=== PATIENT | male | born 1945 | race Caucasian/White ===

== ENCOUNTER → 2016-08-21 | Outpatient (CLI) | payer BC, MEDICARE, OTHER ==
[~2016-08-21] MED LIST: /PREG50CA PO; /WARF25TA PO; AMBIEN PO; ASPI325T PO; CEFAD50CA PO; CHLO25TA3 PO; CLOTR1CR EXT; MAG400TA PO; OMEP40CA2 PO; OXYC5CAP2 PO; OXYC5TAB2 PO; POTA10TA2 PO; TYLE325T5 PO; ZANT150T PO
--- NOTE | 2016-08-21 17:08 | REP ---
CHEST X-RAY PA AND LATERAL 08/21/2016: Comparison: 10/05/2014. Clinical history: Wheezing, dyspnea. Findings: Two PA views to encompass entirety of the chest with a lateral projection. Fibrosis, COPD and apical pleural scarring bilaterally, unchanged from previous study. There is no cardiomegaly, vascular redistribution or pulmonary edema. The aorta is calcified at the arch without aneurysm. Airway intact. Bony thorax shows no focal lesion. Peribronchial thickening reflect bronchitis or reactive airway disease. There is a right upper quadrant metallic foreign body posteriorly. This is unchanged from the CT classification analyst on the chest CT of 09/21/2012 and previous chest x-rays. Bony thorax shows no compression deformity or focal lesion. Impression: 1. COPD and basilar fibrotic change without cardiomegaly, edema, atelectasis or mass. Apical pleural scarring and peribronchial thickening as before. No acute infiltrate. 2. Tortuous aorta without aneurysm. Signed by Mitch Art MD 08/22/2016 03:05 P
== END ==
LOC: M WUC 16:26
PROVIDERS: ATTEND Family Medicine
DX: J44.9 Chronic obstructive pulmonary disease, unspecified (principal); J98.4 Other disorders of lung; I48.0 Paroxysmal atrial fibrillation

== ENCOUNTER → 2018-07-27 | Outpatient (REF) | payer MEDICARE, BC, OTHER | LOC: M LAB REF 13:13 | PROVIDERS: ATTEND Nurse Practitioner Family | DX: N39.0 Urinary tract infection, site not specified (principal) ==

== ENCOUNTER → 2018-08-05 | Outpatient (REF) | payer MEDICARE, BC, OTHER | LOC: M LAB REF 16:49 | PROVIDERS: ATTEND Family Medicine | DX: R31.9 Hematuria, unspecified (principal) ==

== ENCOUNTER → 2018-08-17 | Outpatient (CLI) | payer MEDICARE ==
[~2018-08-17] MED LIST changes: -/PREG50CA PO; -/WARF25TA PO; +CLOT1CRE27 EXT; -CLOTR1CR EXT; +COUM1TAB18 PO; +ISOVUE-370 76% 100ML VIAL (Q9967) As Ordered ONE; +LYRI50CA PO
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
== END ==
LOC: M RAD 12:55
PROVIDERS: ATTEND Nurse Practitioner Family
DX: N13.30 Unspecified hydronephrosis (principal); N20.1 Calculus of ureter; N28.1 Cyst of kidney, acquired
CPT/HCPCS: 74178; Q9967

== ENCOUNTER → 2018-09-17 | Outpatient (CLI) | payer MEDICARE ==
[~2018-09-17] MED LIST changes: +ASPI-222 PO; +FINA5TAB2 PO; -ISOVUE-370 76% 100ML VIAL (Q9967) As Ordered ONE; +LISI-542 PO; +MAGN400C2 PO; +OXYC1TAB23 PO; +POTA20TA6 PO; +PRAV40TA2 PO; +PREG50CA PO; +ZANTTAB PO; +ZOLP5TAB PO
[2018-09-17 13:31] LABS: HEMATOCRIT 45.5 % (42.0-52.0); HEMOGLOBIN 16.1 g/dl (13.5-17.5); MEAN CORPUSCULAR HEMOGLOBIN 31.3 pg (27.0-33.0); MEAN CORPUSCULAR HGB CONC 35.4 g/dl (32.0-36.5); MEAN CORPUSCULAR VOLUME 88.5 fl (80.0-96.0); PLATELET COUNT, AUTOMATED 146 10^3/uL (150-450); RED BLOOD COUNT 5.14 10^6/uL (4.30-6.10); WHITE BLOOD COUNT 6.2 10^3/uL (4.0-10.0)
[2018-09-17 13:51] LABS: INR 1.07
[2018-09-17 13:52] LABS: PARTIAL THROMBOPLASTIN TIME 30.3 SECONDS (25.4-37.6)
[2018-09-17 13:56] LABS: BLOOD UREA NITROGEN 16 MG/DL (7-18); CALCIUM LEVEL 8.7 MG/DL (8.8-10.2); CARBON DIOXIDE LEVEL 29 MEQ/L (21-32); CHLORIDE LEVEL 102 MEQ/L (98-107); CREATININE FOR GFR 0.92 MG/DL (0.70-1.30); GLOMERULAR FILTRATION RATE > 60.0 (>42); GLUCOSE, FASTING 95 MG/DL (70-100); POTASSIUM SERUM 4.5 MEQ/L (3.5-5.1); SODIUM LEVEL 138 MEQ/L (136-145)
--- NOTE | 2018-09-17 15:03 | REP ---
HISTORY: Preoperative evaluation. COMPARISON: 08/21/2016, the latest prior. FINDINGS: The superior mediastinal structures are midline. The cardiac silhouette is unremarkable in size, shape and position. The diaphragmatic surfaces of the lungs are regular and the costophrenic angles are clear. The pulmonary pozo are clear. The imaged osseous structures are intact. IMPRESSION: There is no acute cardiopulmonary disease. No significant change from the prior exam. Electronically Signed by Niko Gardner DO 09/17/2018 04:09 P
== END ==
LOC: M SMT 12:02
PROVIDERS: ATTEND Urology
DX: Z01.818 Encounter for other preprocedural examination (principal); N21.0 Calculus in bladder; N20.0 Calculus of kidney; Z86.79 Personal history of other diseases of the circulatory system

== ENCOUNTER → 2018-09-17 | Outpatient (CLI) | payer MEDICARE ==
--- NOTE | 2018-09-18 23:52 | ECGEPIP ---
Stationary ECG Study [facility] Test Date: 2018-09-17 Pat Name: JOSELITO KELLY Department: Room: - Gender: M Route Vending Machine Servicer: : 1945 Requested By: AUGUST Ferreira Order Number: [id number] Reading MD: Moreno aBrrera Measurements Intervals [place] Rate: 60 P: 67 VT: 181 QRS: 41 QRSD: 95 T: 42 QT: 413 QTc: 414 Interpretive Statements SINUS RHYTHM NO PRIOR TRACING IN THE SYSTEM Electronically Signed On 09-18-2018 23:51:43 EDT by Moreno Barrera
== END ==
LOC: M EKG 12:54
PROVIDERS: ATTEND Urology
DX: Z01.818 Encounter for other preprocedural examination (principal); N21.0 Calculus in bladder; N20.1 Calculus of ureter

== ENCOUNTER 2018-09-25 11:07 | Day surgery (SDC) | payer MEDICARE ==
[~2018-09-25] VITALS: Ht 170.2 cm; Wt 75.7 kg
[~2018-09-25 11:07] MED LIST changes: +LIDOCAINE 1% MDV 20ML VIAL SQ PRN
[2018-09-25] MEDS ORDERED: LR 1,000 ML IV ONE (11:15)
[2018-09-25] MEDS ORDERED: MORPHINE 4 MG/ML 1ML VIAL/SYRINGE (J2270) As Ordered ONE (13:16)
[2018-09-25] MEDS ORDERED: MORPHINE 4 MG/ML 1ML VIAL/SYRINGE (J2270) IV ONE (13:30)
[2018-09-25] MEDS ORDERED: CONRAY-60 60% 50ML VIAL (Q9961) As Ordered ONE (17:01)
[2018-09-25] MEDS: fentaNYL 100 MCG/2 ML INJECTION (J3010) IV PRN ×4 (17:50→18:08)
[2018-09-25] MEDS ORDERED: PERCOCET 5MG/325MG TAB As Ordered ONE (17:50)
[2018-09-25] MEDS ORDERED: fentaNYL 100 MCG/2 ML INJECTION (J3010) As Ordered ONE (17:50)
[2018-09-25] MEDS ORDERED: LR 1,000 ML IV SCH (18:00)
[2018-09-25] MEDS ORDERED: ONDANSETRON 4MG/2ML VIAL (J2405) IV PRN (18:00)
[2018-09-25] MEDS ORDERED: ACETAMINOPHEN TAB 650MG DOSE (2X325MG) PO PRN (18:00)
[2018-09-25] MEDS ORDERED: PERCOCET 5MG/325MG TAB PO PRN (18:00)
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
[2018-09-25 19:49] VITALS: BP 131/76
--- NOTE | 2018-09-26 07:58 | REP ---
RETROGRADE PYELOGRAM: Single image of the pelvis was obtained in my absentia using a portable C-Arm device. That examination shows the distal aspect of a cystoscope with a tiny amount of contrast opacifying what appears to be the urinary bladder. Multiple round radiodensities are seen in the pelvis and there is a left hip prosthesis. Fluoroscopy time provided Dr. Deras: 1 minute 14 seconds. Electronically Signed by Niko Gardner DO 09/26/2018 08:30 A
[2018-09-30 14:11] LABS: COMMENT Comment: (.); COMMENT Note: (.); Ca Ox Monohydrate 95 % (.)
== END 2018-09-25 19:49 | disposition home or self-care (01) ==
LOC: M SDC 11:07
PROVIDERS: ATTEND Urology
DX: N21.0 Calculus in bladder (principal); E78.5 Hyperlipidemia, unspecified; K21.9 Gastro-esophageal reflux disease without esophagitis; Z79.899 Other long term (current) drug therapy; Z79.82 Long term (current) use of aspirin; I10 Essential (primary) hypertension
CPT/HCPCS: 52005; 52318; 74420; 82360; 88300; C1769; J0690; Q9961

== ENCOUNTER 2019-10-09 08:28 | Emergency (ER) | payer MEDICARE ==
[~2019-10-09] VITALS: Ht 167.6 cm; Wt 70.5 kg
[~2019-10-09 08:28] MED LIST changes: -ASPI-222 PO; +ASPI-527 PO; +CEFA500C2 PO; -LIDOCAINE 1% MDV 20ML VIAL SQ PRN; -LISI-542 PO; +LISI-898 PO; +ZANT150T40 PO; -ZANTTAB PO
[2019-10-09 09:15] LABS: BASO % 0.2 % (0.0-1.0); HEMATOCRIT 48.9 % (42.0-52.0); HEMOGLOBIN 17.2 g/dl (13.5-17.5); LYMPH # 0.8 10^3/uL (1.5-5.0); LYMPH % 3.1 % (24.0-44.0); MEAN CORPUSCULAR HEMOGLOBIN 30.6 pg (27.0-33.0); MEAN CORPUSCULAR HGB CONC 35.2 g/dl (32.0-36.5); MEAN CORPUSCULAR VOLUME 86.9 fl (80.0-96.0); MONO # 2.2 10^3/uL (0.0-0.8); MONO % 8.2 % (0.0-5.0); NEUTROPHILS # 23.2 10^3/uL (1.5-8.5); NEUTROPHILS % 87.5 % (36.0-66.0); PLATELET COUNT, AUTOMATED 186 10^3/uL (150-450); RED BLOOD COUNT 5.63 10^6/uL (4.30-6.10); WHITE BLOOD COUNT 26.5 10^3/uL (4.0-10.0)
[2019-10-09 09:26] LABS: ALBUMIN 3.7 GM/DL (3.2-5.2); ALT/SGPT 30 U/L (12-78); BILIRUBIN,DIRECT 0.7 MG/DL (0.0-0.2); BILIRUBIN,TOTAL 1.7 MG/DL (0.2-1.0); LIPASE 68 U/L (73-393); TOTAL PROTEIN 7.8 GM/DL (6.4-8.2)
[2019-10-09] MEDS ORDERED: ONDANSETRON 4MG/2ML VIAL IV ONE (09:30)
[2019-10-09] MEDS ORDERED: NS 1,000 ML IV ONE (09:30)
[2019-10-09] MEDS ORDERED: MORPHINE 4 MG/ML 1ML VIAL/SYRINGE (J2270) IV ONE ×2 (09:30→10:15)
[2019-10-09] MEDS ORDERED: ASPI81TA86 PO (09:36)
[2019-10-09] MEDS ORDERED: PERC5TAB12 PO (09:36)
[2019-10-09] MEDS ORDERED: CIPR-249 PO (09:36)
[2019-10-09] MEDS ORDERED: POTA1TAB14 PO (09:36)
[2019-10-09 09:42] LABS: CK-MB VALUE MASS < 1.0 NG/ML (<3.6); CPK CREATINE PHOSPHOKINASE 36 U/L (39-308); MB/CK RELATIVE INDEX 2.78 (< OR =4); TROPONIN I < 0.02 NG/ML (< 0.10)
[2019-10-09 09:52] LABS: INR 1.25; PROTHROMBIN TIME 15.4 SECONDS (11.8-14.0)
[2019-10-09 09:53] LABS: PARTIAL THROMBOPLASTIN TIME 32.5 SECONDS (25.0-38.4)
[2019-10-09] MEDS ORDERED: PIPERACILLIN/TAZOBACTAM SOD 4.5 GM in D5W MINI-BAG PLUS 50 ML IV ONE (10:00)
[2019-10-09] MEDS ORDERED: NS IV ONE (10:00)
[2019-10-09] MEDS ORDERED: DORZ2SOL5 OU (10:35)
[2019-10-09] MEDS ORDERED: ISOVUE-370 76% 100ML VIAL As Ordered ONE (10:54)
[2019-10-09] MEDS ORDERED: fentaNYL 100 MCG/2 ML INJECTION (J3010) IV ONE (11:30)
[2019-10-09] MEDS ORDERED: HYDROmorphone 2 MG TAB PO STA (12:04)
[2019-10-09] MEDS ORDERED: HYDROMORPHONE HCL 0.5 MG/ 0.5 ML SYRINGE (J1170 PER 1) IV ONE ×2 (12:15→15:30)
--- NOTE | 2019-10-09 14:52 | ED PDOC ---
Post-Departure Follow-Up PT REMAINS IN ED, INITIATED TRANSFER AT 11:40. STAT TRANSFER REQUESTED. 1402- [facility]. 1410 ALL PAPERWORK COMPLETED, STAT TRANSFER. JASWINDER MATIAS PA-C October 09, 2019 14:52
--- NOTE | 2019-10-09 14:58 | REP ---
CT ABDOMEN AND PELVIS WITH IV CONTRAST: TECHNIQUE: Axial contrast-enhanced images from the lung bases to the pubic symphysis using 100 mL Isovue-370 intravenous contrast material with multiplanar reformations. Visualized lung bases demonstrate very mild fibrotic changes. There are a few calcified left hilar lymph nodes. There are a few calcified granulomas in the left lower lobe. Gallbladder is moderately distended. There is gallbladder wall thickening and edema with mild surrounding pericholecystic edema and fluid. The findings are compatible with cholecystitis. Common bile duct is prominent in diameter measuring about 8 mm. There appears to be adjacent hyperemia of the liver in the region of the gallbladder fossa. There is a metallic clip at the inferior margin of the posterior aspect of the right lobe of the liver. The spleen demonstrates a few calcified granulomas. Adrenal glands are normal. Pancreas is unremarkable. There are multiple right renal cysts with scattered diffuse cortical atrophy and scarring. There is a 4-5 mm stone in the lower pole of the right kidney. Several left renal cysts are present, the largest is in the upper pole measuring 4 cm in diameter. There is no hydroureteronephrosis. There is mild aneurysmal dilatation of the distal abdominal aorta 4.1 cm in AP dimension, similar to the prior study of 08/17/2018. There is no adenopathy. 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 There is no free air. Multiple metallic clips and postsurgical changes are seen in the right pelvis and hip region appearing unchanged compared to the prior CT exam. There is a left hip prosthesis. Streak artifact from these metallic structures limits evaluation of the inferior pelvis. The right hip joint is fused. There is atrophy of the right pelvic musculature. There are degenerative changes of the spine. There appears to be a calculus in the dependent portion of the bladder measuring approximately 1.4 cm in diameter. IMPRESSION: Findings consistent with cholecystitis with mild surrounding pericholecystic edema and fluid. Common bile duct is mildly dilated. There appears to be mild hyperemia of the liver in the gallbladder fossa region. No other acute findings, as discussed in detail above. Electronically Signed by Karri Foy MD 10/09/2019 09:49 P
[2019-10-09 15:18] VITALS: BP 164/79
--- NOTE | 2019-10-09 15:25 | REP ---
RIGHT UPPER QUADRANT ULTRASOUND: Real-time sonographic evaluation of right upper quadrant performed. The Gallbladder is distended with wall thickening up to 9 mm. There is a small amount of pericholecystic fluid. Findings are consistent with cholecystitis. No definite stones are seen. There is no evidence of significant biliary dilatation. There is a hypoechoic area in the gallbladder fossa of the liver , which may represent diffuse fatty infiltration of the liver with fatty sparing in the gallbladder fossa, or may indicate focal reactive inflammation in the liver adjacent to an inflamed gallbladder. No other liver or pancreatic abnormality is seen. Pancreas is not well seen due to overlying bowel gas. Right kidney demonstrates mild pelvicaliectasis with right renal cysts. Largest cyst is in the upper pole measuring 1.7 cm in diameter. IMPRESSION: Distended gallbladder with diffuse wall thickening and trace pericholecystic fluid compatible with cholecystitis. No definite intraluminal stones. No biliary dilatation. Electronically Signed by Karri Foy MD 10/09/2019 09:53 P
--- NOTE | 2019-10-10 19:42 | ECGEPIP ---
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
== END 2019-10-09 15:27 | disposition short-term general hospital (02) ==
LOC: M ED 08:28
DX: A41.9 Sepsis, unspecified organism (principal); K81.9 Cholecystitis, unspecified; E80.6 Other disorders of bilirubin metabolism; I10 Essential (primary) hypertension; K21.9 Gastro-esophageal reflux disease without esophagitis; Z79.899 Other long term (current) drug therapy; Z79.82 Long term (current) use of aspirin
CPT/HCPCS: 74177; 76705; 80047; 80076; 82550; 82553; 83605; 83690; 84484; 85025; 85610; 85730; 87040; 93005; 96361; 96374; 96375; 96376; 99284; J1170; J2270; J2405; J2543; J3010; Q9967

== ENCOUNTER → 2020-10-31 | Outpatient (CLI) | payer MEDICARE ==
[~2020-10-31] MED LIST changes: +ASPI81TA86 PO; +CIPR-249 PO; +DORZ2SOL5 OU; +PERC5TAB12 PO; +POTA1TAB14 PO
--- NOTE | 2020-10-31 10:22 | REP ---
INDICATION: AAA. COMPARISON: CT 10/09/2019. TECHNIQUE: Real-time sonographic evaluation of the abdominal aorta performed. FINDINGS: There is a fusiform distal abdominal aortic aneurysm which has not significantly changed compared to the prior CT exam. Bowel gas obscures the proximal abdominal aorta to the level of the renal arteries. Maximum AP diameter of abdominal aorta: Mid abdominal aorta:2.9 cm. Fusiform aneurysm distal abdominal aorta: 4.1 cm, length approximately 5.2 cm. Distal abdominal aorta (prebifurcation): 1.9 cm. Maximum AP diameter common iliac arteries: Right: 13 mm. Left: 14mm. There is moderate thrombus/soft plaque in the aneurysm. IMPRESSION: Fusiform aneurysm distal abdominal aorta does not appear to have changed compared to the prior CT of 10/09/2019. Maximum AP diameter is 4.1 cm. <Electronically signed by Karri Foy > 10/31/20 1019
== END ==
LOC: M RAD 09:25
PROVIDERS: ATTEND Family Medicine
DX: I71.4 Abdominal aortic aneurysm, without rupture (principal)

== ENCOUNTER 2022-04-25 10:55 | Emergency (ER) | payer MEDICARE ==
[~2022-04-25] VITALS: Ht 170.2 cm; Wt 68.2 kg
[~2022-04-25 10:55] MED LIST changes: -LISI-898 PO; +LISI5TAB11 PO; +POTA-151 PO; -POTA20TA6 PO
[2022-04-25] MEDS ORDERED: NS 1,000 ML IV SCH (11:10)
[2022-04-25 11:41] LABS: BASO % 0.4 % (0.0-1.0); HEMATOCRIT 40.4 % (42.0-52.0); HEMOGLOBIN 13.8 g/dl (13.5-17.5); LYMPH # 0.5 10^3/uL (1.5-5.0); LYMPH % 5.2 % (24.0-44.0); MEAN CORPUSCULAR HEMOGLOBIN 29.4 pg (27.0-33.0); MEAN CORPUSCULAR HGB CONC 34.2 g/dl (32.0-36.5); MONO # 1.1 10^3/uL (0.0-0.8); MONO % 11.9 % (2.0-8.0); NEUTROPHILS # 7.4 10^3/uL (1.5-8.5); NEUTROPHILS % 81.6 % (36.0-66.0); PLATELET COUNT, AUTOMATED 186 10^3/uL (150-450)
[2022-04-25 12:37] LABS: LIPASE 41 U/L (12-53)
[2022-04-25 12:39] LABS: ALBUMIN 2.8 G/DL (3.2-5.2); ALKALINE PHOSPHATASE 164 U/L (46-116); ALT/SGPT 45 U/L (7.0-40); AST/SGOT 55 U/L (<34); BILIRUBIN,DIRECT 0.6 MG/DL (<0.4); BLOOD UREA NITROGEN 20 MG/DL (9-23); CALCIUM LEVEL 8.3 MG/DL (8.3-10.6); CARBON DIOXIDE LEVEL 23 MMOL/L (20-31); CHLORIDE LEVEL 96 MMOL/L (98-107); CREATININE FOR GFR 0.91 MG/DL (0.70-1.30); GLOMERULAR FILTRATION RATE > 60.0 (>42); GLUCOSE, FASTING 99 MG/DL (74-106); POTASSIUM SERUM 4.1 MMOL/L (3.5-5.1); SODIUM LEVEL 132 MMOL/L (136-145); TOTAL PROTEIN 6.8 G/DL (5.7-8.2)
[2022-04-25] MEDS ORDERED: ONDA4TAB6 PO (14:32)
[2022-04-25 15:23] VITALS: BP 129/69
== END 2022-04-25 15:31 | disposition home or self-care (01) ==
LOC: EDBD 10:55 → M ED 10:55
DX: K52.9 Noninfective gastroenteritis and colitis, unspecified (principal); I10 Essential (primary) hypertension; K21.9 Gastro-esophageal reflux disease without esophagitis; G57.92 Unspecified mononeuropathy of left lower limb; I71.40 Abdominal aortic aneurysm, without rupture, unspecified; Z82.49 Family history of ischemic heart disease and other diseases of the circulatory system; Z79.82 Long term (current) use of aspirin; Z79.899 Other long term (current) drug therapy

== ENCOUNTER 2022-06-20 12:41 | Emergency (ER) | payer MEDICARE ==
[~2022-06-20] VITALS: Ht 167.6 cm; Wt 68.2 kg
[~2022-06-20 12:41] MED LIST changes: +ONDA4TAB6 PO
[2022-06-20] MEDS ORDERED: MORPHINE 4 MG/ML 1ML VIAL IV ONE (15:05)
[2022-06-20] MEDS ORDERED: NS 1,000 ML IV ONE (15:05)
[2022-06-20 15:43] LABS: BASO # 0.1 10^3/uL (0.0-0.2); BASO % 0.8 % (0.0-1.0); EOS # 0.4 10^3/uL (0.0-0.5); EOS % 3.1 % (0.0-3.0); HEMATOCRIT 40.6 % (42.0-52.0); HEMOGLOBIN 13.3 g/dl (13.5-17.5); LYMPH # 1.7 10^3/uL (1.5-5.0); MEAN CORPUSCULAR HEMOGLOBIN 29.1 pg (27.0-33.0); MEAN CORPUSCULAR HGB CONC 32.8 g/dl (32.0-36.5); MEAN CORPUSCULAR VOLUME 88.8 fl (80.0-96.0); MONO # 0.7 10^3/uL (0.0-0.8); MONO % 5.9 % (2.0-8.0); NEUTROPHILS # 8.6 10^3/uL (1.5-8.5); NEUTROPHILS % 72.8 % (36.0-66.0); PLATELET COUNT, AUTOMATED 284 10^3/uL (150-450); RED BLOOD COUNT 4.57 10^6/uL (4.30-6.10); WHITE BLOOD COUNT 11.8 10^3/uL (4.0-10.0)
[2022-06-20 16:01] LABS: INR 1.12; PROTHROMBIN TIME 14.6 SECONDS (12.5-14.5)
[2022-06-20 16:02] LABS: PARTIAL THROMBOPLASTIN TIME 31.7 SECONDS (24.8-34.2)
[2022-06-20 16:08] LABS: ERYTHROCYTE SEDIMENTATION RATE 78 mm/hr (0-20)
[2022-06-20 16:13] LABS: ALBUMIN 3.3 G/DL (3.2-5.2); BILIRUBIN,DIRECT 0.2 MG/DL (<0.4); BILIRUBIN,TOTAL 0.4 MG/DL (0.3-1.2); C REACTIVE PROTEIN QUANTITATIV 15.6 MG/DL (<1.0)
[2022-06-20 16:15] LABS: RSV AMPLIFICATION NEGATIVE (NEGATIVE)
[2022-06-20] MEDS ORDERED: VANCOMYCIN HCL 1,250 MG in IV FLUID PLACE HOLDER 1 EA IV ONE (17:05)
[2022-06-20] MEDS ORDERED: HYDROMORPHONE HCL 0.5 MG/ 0.5 ML SYRINGE IV ONE (17:30)
[2022-06-20] MEDS ORDERED: VANCOMYCIN HCL 750 MG, VIAL MATE ADAPTER 1 EACH in D5W 250 ML IV ONE (17:30)
[2022-06-20] MEDS ORDERED: DALBAVANCIN 1,500 MG in D5W 250 ML IV ONE (17:30)
[2022-06-20] MEDS ORDERED: VANCOMYCIN HCL 500 MG in D5W MINI-BAG PLUS 100 ML IV ONE (18:30)
[2022-06-20 20:22] VITALS: BP 108/58
== END 2022-06-20 20:25 | disposition home or self-care (01) ==
LOC: M ED 12:41
DX: L03.115 Cellulitis of right lower limb (principal); I10 Essential (primary) hypertension; Z86.718 Personal history of other venous thrombosis and embolism; K21.9 Gastro-esophageal reflux disease without esophagitis; G47.33 Obstructive sleep apnea (adult) (pediatric); G62.9 Polyneuropathy, unspecified; Z79.82 Long term (current) use of aspirin; Z79.899 Other long term (current) drug therapy
CPT/HCPCS: 73502; 76857; 80047; 80076; 83605; 85025; 85610; 85652; 85730; 86140; 87040; 87631; 93971; 96365; 96366; 96375; 99284; J0875; J1170; J2270

== ENCOUNTER → 2022-07-30 | Outpatient (REF) | payer MEDICARE | LOC: M LAB REF 16:36 | PROVIDERS: ATTEND Family Medicine | DX: M25.551 Pain in right hip (principal) ==

== ENCOUNTER → 2022-08-13 | Outpatient (REF) | payer MEDICARE | LOC: M LAB REF 12:26 | PROVIDERS: ATTEND Family Medicine | DX: M25.551 Pain in right hip (principal); M86.651 Other chronic osteomyelitis, right thigh ==

== ENCOUNTER → 2022-09-12 | Outpatient (REF) | payer MEDICARE ==
[~2022-09-12] MED LIST changes: +POTA-298 PO; -POTA1TAB14 PO
== END ==
LOC: M SFHCPLAZ 13:25
PROVIDERS: ATTEND Internal Medicine Infectious Disease
DX: M86.9 Osteomyelitis, unspecified (principal)

== ENCOUNTER 2022-09-16 13:32 | Outpatient (CLI) | payer MEDICARE ==
[~2022-09-16] VITALS: Ht 167.6 cm; Wt 68.0 kg
[2022-09-16 13:45] VITALS: BP 136/86
[2022-09-16 14:27] LABS: BASO # 0.1 10^3/uL (0.0-0.2); BASO % 0.8 % (0.0-1.0); EOS # 0.4 10^3/uL (0.0-0.5); EOS % 4.5 % (0.0-3.0); HEMATOCRIT 37.3 % (42.0-52.0); HEMOGLOBIN 12.1 g/dl (13.5-17.5); LYMPH # 1.7 10^3/uL (1.5-5.0); LYMPH % 19.4 % (24.0-44.0); MEAN CORPUSCULAR HEMOGLOBIN 28.3 pg (27.0-33.0); MEAN CORPUSCULAR HGB CONC 32.4 g/dl (32.0-36.5); MEAN CORPUSCULAR VOLUME 87.1 fl (80.0-96.0); MONO # 0.6 10^3/uL (0.0-0.8); MONO % 7.4 % (2.0-8.0); NEUTROPHILS # 5.8 10^3/uL (1.5-8.5); NEUTROPHILS % 67.1 % (36.0-66.0); PLATELET COUNT, AUTOMATED 235 10^3/uL (150-450); RED BLOOD COUNT 4.28 10^6/uL (4.30-6.10); WHITE BLOOD COUNT 8.7 10^3/uL (4.0-10.0)
[2022-09-16] MEDS ORDERED: DALBAVANCIN 1,500 MG in D5W 250 ML IV ONE (14:30)
[2022-09-16 14:46] LABS: ERYTHROCYTE SEDIMENTATION RATE 78 mm/hr (0-20)
[2022-09-16 14:56] LABS: ALBUMIN 3.3 G/DL (3.2-5.2); ALKALINE PHOSPHATASE 111 U/L (46-116); ALT/SGPT 17 U/L (7.0-40); AST/SGOT 40 U/L (<34); BILIRUBIN,TOTAL 0.3 MG/DL (0.3-1.2); BLOOD UREA NITROGEN 14 MG/DL (9-23); CALCIUM LEVEL 8.7 MG/DL (8.3-10.6); CARBON DIOXIDE LEVEL 24 MMOL/L (20-31); CHLORIDE LEVEL 103 MMOL/L (98-107); GLOMERULAR FILTRATION RATE > 60.0 (>42); GLUCOSE, FASTING 96 MG/DL (74-106); SODIUM LEVEL 134 MMOL/L (136-145); TOTAL PROTEIN 7.9 G/DL (5.7-8.2)
[2022-09-16 16:00] VITALS: BP 138/63
== END 2022-09-16 16:04 | disposition home or self-care (01) ==
LOC: M INFU 13:32
PROVIDERS: ATTEND Internal Medicine Infectious Disease
DX: L02.415 Cutaneous abscess of right lower limb (principal)
CPT/HCPCS: 36592; 80053; 85025; 85652; 86140; 96365; J0875

== ENCOUNTER → 2022-10-22 | Outpatient (CLI) | payer MEDICARE ==
[2022-10-22 18:40] LABS: BASO # 0.1 10^3/uL (0.0-0.2); BASO % 0.9 % (0.0-1.0); EOS # 0.4 10^3/uL (0.0-0.5); EOS % 3.9 % (0.0-3.0); HEMATOCRIT 40.1 % (42.0-52.0); LYMPH # 1.8 10^3/uL (1.5-5.0); LYMPH % 19.8 % (24.0-44.0); MEAN CORPUSCULAR HEMOGLOBIN 28.4 pg (27.0-33.0); MEAN CORPUSCULAR HGB CONC 32.4 g/dl (32.0-36.5); MEAN CORPUSCULAR VOLUME 87.7 fl (80.0-96.0); MONO # 0.8 10^3/uL (0.0-0.8); MONO % 8.5 % (2.0-8.0); NEUTROPHILS # 6.1 10^3/uL (1.5-8.5); NEUTROPHILS % 66.2 % (36.0-66.0); PLATELET COUNT, AUTOMATED 237 10^3/uL (150-450); RED BLOOD COUNT 4.57 10^6/uL (4.30-6.10); WHITE BLOOD COUNT 9.2 10^3/uL (4.0-10.0)
[2022-10-22 19:10] LABS: ERYTHROCYTE SEDIMENTATION RATE 41 mm/hr (0-20)
== END ==
LOC: M PLALAB 15:44
PROVIDERS: ATTEND Internal Medicine Infectious Disease
DX: M86.9 Osteomyelitis, unspecified (principal)

== ENCOUNTER → 2023-03-13 | Outpatient (CLI) | payer MEDICARE ==
[2023-03-13 13:40] LABS: HEMATOCRIT 41.8 % (42.0-52.0); HEMOGLOBIN 13.6 g/dl (13.5-17.5); MEAN CORPUSCULAR HEMOGLOBIN 28.6 pg (27.0-33.0); MEAN CORPUSCULAR HGB CONC 32.5 g/dl (32.0-36.5); PLATELET COUNT, AUTOMATED 218 10^3/uL (150-450); RED BLOOD COUNT 4.75 10^6/uL (4.30-6.10); WHITE BLOOD COUNT 8.4 10^3/uL (4.0-10.0)
[2023-03-13 14:42] LABS: ERYTHROCYTE SEDIMENTATION RATE 22 mm/hr (0-20)
== END ==
LOC: M PLALAB 11:58
PROVIDERS: ATTEND Internal Medicine Infectious Disease
DX: M86.9 Osteomyelitis, unspecified (principal)

== ENCOUNTER → 2023-05-13 | Outpatient (CLI) | payer MEDICARE | LOC: M RAD 06:46 | PROVIDERS: ATTEND Physician Assistant | DX: I71.43 Infrarenal abdominal aortic aneurysm, without rupture (principal) ==

== ENCOUNTER → 2023-06-10 | Outpatient (CLI) | payer MEDICARE ==
[2023-06-10 13:18] LABS: BLOOD UREA NITROGEN 13 MG/DL (9-23); CREATININE FOR GFR 0.85 MG/DL (0.70-1.30); GLOMERULAR FILTRATION RATE > 60.0 (>42)
== END ==
LOC: M LAB 12:22
PROVIDERS: ATTEND Physician Assistant
DX: I71.43 Infrarenal abdominal aortic aneurysm, without rupture (principal)

== ENCOUNTER → 2023-06-16 | Outpatient (CLI) | payer MEDICARE ==
[~2023-06-16] MED LIST changes: +ISOVUE-370 76% 100ML VIAL ONE
== END ==
LOC: M PLAIMG 09:22
PROVIDERS: ATTEND Physician Assistant
DX: I71.43 Infrarenal abdominal aortic aneurysm, without rupture (principal)
CPT/HCPCS: 74174; Q9967

== ENCOUNTER → 2023-09-08 | Outpatient (CLI) | payer MEDICARE ==
[~2023-09-08] MED LIST changes: -ISOVUE-370 76% 100ML VIAL ONE
[2023-09-08 15:58] LABS: BASO # 0.1 10^3/uL (0.0-0.2); BASO % 1.1 % (0.0-1.0); EOS # 0.4 10^3/uL (0.0-0.5); EOS % 6.2 % (0.0-3.0); HEMATOCRIT 43.1 % (42.0-52.0); HEMOGLOBIN 14.1 g/dl (13.5-17.5); LYMPH # 1.8 10^3/uL (1.5-5.0); LYMPH % 29.2 % (24.0-44.0); MEAN CORPUSCULAR HEMOGLOBIN 28.5 pg (27.0-33.0); MEAN CORPUSCULAR HGB CONC 32.7 g/dl (32.0-36.5); MEAN CORPUSCULAR VOLUME 87.2 fl (80.0-96.0); MONO # 0.6 10^3/uL (0.0-0.8); MONO % 9.8 % (2.0-8.0); NEUTROPHILS # 3.3 10^3/uL (1.5-8.5); NEUTROPHILS % 53.2 % (36.0-66.0); PLATELET COUNT, AUTOMATED 212 10^3/uL (150-450); RED BLOOD COUNT 4.94 10^6/uL (4.30-6.10); WHITE BLOOD COUNT 6.1 10^3/uL (4.0-10.0)
[2023-09-08 16:05] LABS: ERYTHROCYTE SEDIMENTATION RATE 15 mm/hr (0-20)
[2023-09-08 16:29] LABS: BLOOD UREA NITROGEN 11 MG/DL (9-23); CALCIUM LEVEL 8.9 MG/DL (8.3-10.6); CARBON DIOXIDE LEVEL 29 MMOL/L (20-31); CHLORIDE LEVEL 103 MMOL/L (98-107); CREATININE FOR GFR 0.85 MG/DL (0.70-1.30); GLOMERULAR FILTRATION RATE > 60.0 (>42); GLUCOSE, FASTING 79 MG/DL (74-106); POTASSIUM SERUM 4.7 MMOL/L (3.5-5.1); SODIUM LEVEL 140 MMOL/L (136-145)
== END ==
LOC: M PLALAB 13:03
PROVIDERS: ATTEND Internal Medicine Infectious Disease
DX: M86.9 Osteomyelitis, unspecified (principal)

== ENCOUNTER → 2023-10-31 | Outpatient (REF) | payer MEDICARE ==
[~2023-10-31] MED LIST changes: +ONDA-282 PO; -ONDA4TAB6 PO
== END ==
LOC: M LAB REF 17:13
PROVIDERS: ATTEND Family Medicine
DX: G89.29 Other chronic pain (principal)

== ENCOUNTER → 2023-12-26 | Outpatient (REF) | payer MEDICARE | LOC: M LAB REF 12:18 | PROVIDERS: ATTEND Family Medicine | DX: G89.29 Other chronic pain (principal) ==

== ENCOUNTER → 2024-01-19 | Outpatient (REF) | payer MEDICARE | LOC: M LAB REF 16:30 | PROVIDERS: ATTEND Family Medicine | DX: G89.29 Other chronic pain (principal) ==

== ENCOUNTER → 2024-03-01 | Outpatient (CLI) | payer MEDICARE | LOC: M RAD 10:37 | PROVIDERS: ATTEND Physician Assistant | DX: I71.43 Infrarenal abdominal aortic aneurysm, without rupture (principal); I73.9 Peripheral vascular disease, unspecified; Z95.828 Presence of other vascular implants and grafts ==

== ENCOUNTER → 2024-05-21 | Outpatient (REF) | payer MEDICARE | LOC: M LAB REF 12:39 | PROVIDERS: ATTEND Family Medicine | DX: M86.9 Osteomyelitis, unspecified (principal) ==

== ENCOUNTER → 2024-06-02 | Outpatient (CLI) | payer MEDICARE | LOC: M RAD 09:16 | PROVIDERS: ATTEND Physician Assistant | DX: Z98.890 Other specified postprocedural states (principal); Z95.820 Peripheral vascular angioplasty status with implants and grafts; Z86.79 Personal history of other diseases of the circulatory system; I70.201 Unspecified atherosclerosis of native arteries of extremities, right leg ==

== ENCOUNTER → 2024-09-20 | Outpatient (REF) | payer MEDICARE ==
[~2024-09-20] MED LIST changes: -PREG50CA PO; +PREG50CA87 PO
[2024-09-20 18:29] LABS: PERCENT SATURATION 8.8 % (19.7-50.0)
[2024-09-20 18:32] LABS: FERRITIN 34.9 NG/ML (10.5-307.3)
== END ==
LOC: M LAB REF 17:18
PROVIDERS: ATTEND Family Medicine
DX: D64.9 Anemia, unspecified (principal)

== ENCOUNTER → 2024-12-01 | Outpatient (CLI) | payer MEDICARE ==
[~2024-12-01] MED LIST changes: -PRAV40TA2 PO; +PRAV40TA85 PO
== END ==
LOC: M RAD 08:48
PROVIDERS: ATTEND Physician Assistant
DX: I71.43 Infrarenal abdominal aortic aneurysm, without rupture (principal)

== ENCOUNTER → 2025-01-26 | Outpatient (REF) | payer MEDICARE ==
[~2025-01-26] MED LIST changes: -ZOLP5TAB PO; +ZOLP5TAB9 PO
== END ==
LOC: M LAB REF 11:48
PROVIDERS: ATTEND Family Medicine
DX: M86.9 Osteomyelitis, unspecified (principal)